=== PATIENT | female | born 1955 | race Caucasian/White ===

== ENCOUNTER 2020-11-06 14:52 | Inpatient (IN) ==
[2020-11-06 16:24] LABS: Basophils % 0.5 %; Eosinophils # 0.2 K/mcL (0.0-0.6); Eosinophils % 3.1 %; Hematocrit 43.9 % (35.3-44.9); Hemoglobin 15.2 g/dL (11.5-15.4); Immature Granulocytes % 0.1 % (0-4); Lymphocytes # 2.6 K/mcL (0.6-4.6); Lymphocytes % 33.5 %; Mean Corpuscular HGB Conc 34.6 g/dL (31.6-35.5); Mean Corpuscular Hemoglobin 31.4 pg (28.0-33.3); Mean Corpuscular Volume 90.7 fL (83.0-100.0); Mean Platelet Volume 9.6 fL (9.4-12.4); Monocytes # 0.6 K/mcL (0.0-1.3); Monocytes % 8.1 %; Neutrophils # 4.3 K/mcL (1.6-8.9); Platelet Count 217 K/mcL (140-400); Red Blood Count 4.84 M/mcL (3.82-4.97); Segmented Neutrophils % 54.7 %; White Blood Count 7.8 K/mcL (4.3-11.1)
[2020-11-06 16:44] LABS: INR 1.1; Prothrombin Time 12.8 Seconds (9.4-12.1)
[2020-11-06 16:46] LABS: Activated Partial Thrombo Time 29.3 Seconds (26.0-36.0)
[2020-11-06 16:51] LABS: BUN/Creatinine Ratio 27 (6-26); Blood Urea Nitrogen 18 mg/dL (8-23); Calcium 9.3 mg/dL (8.6-10.3); Carbon Dioxide 27 mEq/L (23-29); Chloride 105 mEq/L (98-107); Glucose 99 mg/dL (70-105); Osmolality,Calculated 290 (280-300); Potassium 3.9 mEq/L (3.5-5.1); Sodium 139 mEq/L (136-145); Troponin I < 0.03 ng/mL (< 0.04); eGFR For African Americans > 60 (> 60); eGFR For Non-African Americans > 60 (> 60)
[2020-11-06] MEDS ORDERED: Naloxone 0.4 MG/ML INJ IVP PRN (17:52)
[2020-11-06] MEDS ORDERED: Mag Hydrox/Al Hydrox/Simeth 30 ML UDC PO PRN (17:52)
[2020-11-06] MEDS ORDERED: Ondansetron ODT 4 MG TAB.RAPDIS SL PRN (17:52)
[2020-11-06] MEDS ORDERED: MOM Conc 10 ML UD.LIQ PO PRN (17:52)
[2020-11-06] MEDS ORDERED: Melatonin 3 MG TABLET PO PRN (17:52)
[2020-11-06] MEDS ORDERED: Ipratropium/Albuterol Neb 3 ML IH PRN (18:08)
[2020-11-06] MEDS: *HR* OxyCODONE/APAP 5/325 TABLET PO PRN (23:12)
[2020-11-07] MEDS ORDERED: *HR* Enoxaparin 40 MG/0.4 ML SYRINGE SQ SCH (06:00)
[2020-11-07 06:01] LABS: Mean Corpuscular HGB Conc 32.9 g/dL (31.6-35.5); Mean Corpuscular Volume 91.1 fL (83.0-100.0); Platelet Count 207 K/mcL (140-400); Red Cell Distribution Width 13.2 % (11.5-14.5); White Blood Count 5.8 K/mcL (4.3-11.1)
[2020-11-07 06:02] LABS: Hemoglobin 13.5 g/dL (11.5-15.4)
[2020-11-07 06:21] LABS: Alanine Aminotransferase 10 Units/L (7-52); Albumin 3.6 g/dL (3.5-5.7); Albumin/Globulin Ratio 1.7 (1.1-2.2); Alkaline Phosphatase 90 Units/L (34-104); Aspartate Amino Transferase 13 Units/L (13-39); BUN/Creatinine Ratio 30 (6-26); Bilirubin,Total 0.9 mg/dL (0.3-1.0); Blood Urea Nitrogen 23 mg/dL (8-23); Calcium 8.7 mg/dL (8.6-10.3); Carbon Dioxide 27 mEq/L (23-29); Chloride 105 mEq/L (98-107); Globulin 2.1 g/dL (2.4-3.5); Glucose 104 mg/dL (70-105); Osmolality,Calculated 294 (280-300); Sodium 140 mEq/L (136-145); Total Protein 5.7 g/dL (6.4-8.9); eGFR For African Americans > 60 (> 60); eGFR For Non-African Americans > 60 (> 60)
[2020-11-07 06:45] LABS: Folate 7.4 ng/mL (3.0-16.0)
[2020-11-07] MEDS: tiZANidine 4 MG TABLET PO SCH ×3 (08:12→21:58)
[2020-11-07] MEDS: *HR* OxyCODONE/APAP 5/325 TABLET PO PRN ×2 (15:44→23:53)
[2020-11-07] MEDS: CarBAMazepine XR (12 hr) 100 MG TAB PO SCH (17:09)
[2020-11-07] MEDS: Budesonide/Formoterol 80/4.5 1 PUFF INH IH SCH (20:09)
[2020-11-07] MEDS: Tiotropium 10 INH DOSE IH SCH (20:09)
[2020-11-08 01:33] LABS: Hematocrit 39.3 % (35.3-44.9); Hemoglobin 12.8 g/dL (11.5-15.4); Mean Corpuscular HGB Conc 32.6 g/dL (31.6-35.5); Mean Corpuscular Hemoglobin 29.9 pg (28.0-33.3); Mean Corpuscular Volume 91.8 fL (83.0-100.0); Mean Platelet Volume 10.1 fL (9.4-12.4); Platelet Count 197 K/mcL (140-400); Red Blood Count 4.28 M/mcL (3.82-4.97); Red Cell Distribution Width 13.2 % (11.5-14.5); White Blood Count 5.7 K/mcL (4.3-11.1)
[2020-11-08] MEDS: CarBAMazepine XR (12 hr) 100 MG TAB PO SCH (06:32)
[2020-11-08] MEDS: Tiotropium 10 INH DOSE IH SCH (08:32)
[2020-11-08] MEDS: Budesonide/Formoterol 80/4.5 1 PUFF INH IH SCH (08:33)
[2020-11-08] MEDS ORDERED: Loratadine 10 MG TABLET PO SCH (09:00)
[2020-11-08] MEDS ORDERED: Fluticasone Propionate Nasal 50 MCG/SPRAY BOTTLE NS SCH (09:00)
[2020-11-08] MEDS: tiZANidine 4 MG TABLET PO SCH (09:43)
[2020-11-08 10:16] VITALS: BP 111/59
== END 2020-11-08 14:54 | disposition home health service (06) | DRG 92 ==
LOC: EMEROOARM 14:52 → 3BNU 14:52 → SUATTDRO 17:54 → 3BNU 18:51
PROVIDERS: ADMIT Internal Medicine; ATTEND Nurse Practitioner